=== PATIENT | male | born 1965 | race Caucasian/White ===

== ENCOUNTER 2017-02-27 16:59 | Emergency (ER) | payer SELFPAY ==
[~2017-02-27] VITALS: Ht 175.3 cm; Wt 75.0 kg
[2017-02-27 17:00] VITALS: BP 148/96
== END 2017-02-27 21:31 | disposition left against medical advice (07) ==
LOC: ER 17:39
DX: Z04.8 Encounter for examination and observation for other specified reasons (principal); Z53.21 Procedure and treatment not carried out due to patient leaving prior to being seen by health care provider